=== PATIENT | male | born 1935 | race Two or more races ===

== ENCOUNTER 2018-05-18 13:47 | Outpatient (CLI) | payer OTHER | END 2018-05-18 23:59 | disposition home or self-care (01) | LOC: CARD 13:47 → RAD 23:59 | PROVIDERS: ATTEND Orthopaedic Surgery | DX: J98.4 Other disorders of lung (principal); I70.0 Atherosclerosis of aorta | CPT/HCPCS: 71046; 94060; 94726; 94729 ==

== ENCOUNTER → 2020-08-21 | Outpatient (CLI) | payer OTHER | END | disposition home or self-care (01) | LOC: ROC 07:51 | PROVIDERS: ATTEND Radiology Radiation Oncology | DX: C79.31 Secondary malignant neoplasm of brain (principal) | CPT/HCPCS: 99214; G0463 ==

== ENCOUNTER 2020-09-11 07:19 | Outpatient (CLI) | payer OTHER | END 2020-09-11 23:59 | disposition home or self-care (01) | LOC: ROC 07:19 | PROVIDERS: ATTEND Radiology Radiation Oncology | DX: C79.31 Secondary malignant neoplasm of brain (principal); Z85.118 Personal history of other malignant neoplasm of bronchus and lung | CPT/HCPCS: 99213; G0463 ==